=== PATIENT | female | born 1995 | race African-American/Black ===

== ENCOUNTER 2017-03-28 21:03 | Emergency (ER) | payer SELFPAY ==
[2017-03-28 21:10] VITALS: RESP 16
[2017-03-28] MEDS ORDERED: NS 1,000 ML IV ONE (21:53)
[2017-03-28 23:13] LABS: % IMMATURE GRANULYOCYTES 0.4 % (0.0-1.1); ABSOLUTE IMMATURE GRANULOCYTES 0.05 10^3/uL (0.00-0.10); ADD DIFF? NO; ADD MORPH? NO; ADD SCAN? NO; ATYPICAL LYMPHOCYTE FLAG 0 (0-99); FRAGMENT RBC FLAG 0 (0-99); HEMATOCRIT 37.3 % (38.0-47.0); HEMOGLOBIN 13.3 g/dL (12.6-16.3); LEFT SHIFT FLG 0 (0-99); LIPEMIA HEMOLYSIS FLAG 90 (0-99); MEAN CELL HEMOGLOBIN 31.4 pg (27.9-34.1); MEAN CELL HEMOGLOBIN CONCENTR. 35.7 g/dL (32.4-36.7); MEAN CELL VOLUME 88.2 fL (81.5-99.8); MEAN PLATELET VOLUME 9.4 fL (8.7-11.7); PLATELET CLUMPS FLAG 20 (0-99); PLATELET COUNT 277 10^3/uL (150-400); RED BLOOD CELL COUNT 4.23 10^6/uL (4.18-5.33); RED CELL DISTRIBUTION WIDTH 13.2 % (11.5-15.2)
[2017-03-28 23:28] LABS: COLOR PALE YELLOW; LEUKOCYTE ESTERASE,URINE 1+ (NEGATIVE); NITRITE,URINE NEGATIVE (NEGATIVE)
[2017-03-28 23:31] LABS: ANION GAP 12 mEq/L (8-16); CALCIUM 9.4 mg/dL (8.5-10.4); CARBON DIOXIDE 19 mEq/l (22-31); CHLORIDE 106 mEq/L (97-110); CREATININE 0.6 mg/dL (0.6-1.0); GLOMERULAR FILTRATION RATE > 60; GLUCOSE 77 mg/dL (70-100); POTASSIUM 3.7 mEq/L (3.5-5.2); SODIUM 137 mEq/L (134-144)
[2017-03-29 00:03] LABS: BACTERIA 3+ /hpf (NONE SEEN)
--- NOTE | 2017-03-29 00:35 | EDPHY ---
H & P Stated Complaint: vag bleeding/spotting, prenant ? 3 months unk EDC - Personal History LMP (Females 10-55): Over 28 Days Ago Current Tetanus/Diphtheria Vaccine: Unsure - Medical/Surgical History Hx Asthma: No Hx Chronic Respiratory Disease: No Hx Diabetes: No Hx Cardiac Disease: No Hx Renal Disease: No Hx Cirrhosis: No Hx Alcoholism: No Hx HIV/AIDS: No Hx Splenectomy or Spleen Trauma: No Other PMH: PSHx: denies. PMHx: 1, para 0 - Social History Smoking Status: Current every day smoker HPI/ROS: Chief complaint: with pelvic pain and vaginal bleeding History of present illness: This is a 21-year-old female who presents to the emergency department stating that she is and she has developed pelvic pain and vaginal bleeding. She reports the onset of symptoms over the last day. Mild pelvic cramping. Associated bright red blood from the vagina. Occasional clot passage. No more than 1 pad an hour. She denies precipitating factors. She denies alleviating factors. She denies other associated signs or symptoms including no fevers, no abdominal pain, no nausea, vomiting or diarrhea , no urinary symptoms, no other abnormal vaginal discharge. Further no systemic symptoms such as dizziness, lightheadedness, fatigue or weakness. She is not sure how far along she is with her . She has not establish obstetric care as of yet. Review of systems: A 10 point review of systems was obtained and other than described above was negative (Rene Hernandez) - Physical Exam Exam: General Appearance: Alert, nontoxic. Eyes: Pupils equal and round no pallor or injection. ENT, Mouth: Mucous membranes moist. Respiratory: There are no retractions, lungs are clear to auscultation. Cardiovascular: Regular rate and rhythm. Gastrointestinal: Abdomen is soft and non tender, no masses, bowel sounds normal. Neurological: Alert and oriented x4. Strength and sensation intact and symmetrical. Skin: Warm and dry, no rashes. Musculoskeletal: Neck is supple non tender. Extremities are symmetrical, full range of motion. Psychiatric: Patient is oriented X 3, there is no agitation. (Rene Hernandez) Constitutional: Initial Vital Signs Temperature (C) 36.6 C 03/28/17 21:07 Heart Rate 95 03/28/17 21:07 Respiratory Rate 16 03/28/17 21:07 Blood Pressure 110/75 03/28/17 21:07 O2 Sat (%) 98 03/28/17 21:07 O2 Delivery Mode Room Air Allergies/Adverse Reactions: No Known Allergies Allergy (Unverified 03/28/17 21:06) Home Medications: Medication Instructions Recorded Nitrofurantoin Macrobid [Macrobid] 100 mg PO BID 5 Days 03/29/17 Medical Decision Making - Diagnostics Imaging Results: Imaging Impressions Obstetrics Ultrasound 03/28/17 21:53 Impression: 1. Single viable intrauterine gestation with size consistent with LMP dates. 2. FHR = 185 BPM. 3. Recommend followup anatomy scan between 19 and 20 weeks gestation. 4. No subchorionic hemorrhage. Findings and recommendations discussed with Emergency Department physician, EMMA Hammond at 23:14 hour, 03/28/2017. Final report concurs with initial preliminary interpretation. ED Course/Re-evaluation: Patient is discussed with my secondary supervising physician Dr. Keyla Gabriel. Patient presents to the emergency department stating she is and has developed pelvic pain and vaginal bleeding. On presentation she is nontoxic. Afebrile and vital signs are stable. Blood studies are unremarkable. She is O-positive, RhoGAM is not indicated. Pelvic ultrasound is unremarkable. Urinalysis is concerning for infection although she does not have symptoms. At this time I do not appreciate need for further emergency department intervention or inpatient management. She will be discharged. She will be started on Macrobid, urine culture is pending. I have recommended she start vitamins. She has been given referral information to different OBGYN's in [facility]. Home care is discussed. Strict return precautions are given. Patient voiced understanding and agreement with plan. (Rene Hernandez) PHYSICIAN DOCUMENTATION: The patient was evaluated and managed by the Physician Shank Skinner. My co- signature indicates that I have reviewed this chart and I agree with the findings and plan of care as documented. I am the secondary supervising physician. (Keyla Gabriel) Differential Diagnosis: Included but not limited to uneventful , miscarriage, threatened miscarriage, inevitable miscarriage, ectopic , vaginal infections of multiple etiologies, urinary tract infection (Rene Hernandez) - Data Points Laboratory Results: Laboratory Results 03/28/17 23:00 03/28/17 23:00 03/28/17 03/28/17 03/28/17 23:00 23:00 23:00 WBC 11.24 10^3/uL H 10^3/uL (3.80-9.50) RBC 4.23 10^6/uL 10^6/uL (4.18-5.33) Hgb 13.3 g/dL g/dL (12.6-16.3) Hct 37.3 % L % (38.0-47.0) MCV 88.2 fL fL (81.5-99.8) MCH 31.4 pg pg (27.9-34.1) MCHC 35.7 g/dL g/dL (32.4-36.7) RDW 13.2 % % (11.5-15.2) Plt Count 277 10^3/uL 10^3/uL (150-400) MPV 9.4 fL fL (8.7-11.7) Neut % (Auto) 71.5 % % (39.3-74.2) Lymph % (Auto) 19.0 % % (15.0-45.0) [place] % (Auto) 6.3 % % (4.5-13.0) Eos % (Auto) 2.4 % % (0.6-7.6) Baso % (Auto) 0.4 % % (0.3-1.7) Nucleat RBC Rel Count 0.0 % % (0.0-0.2) Absolute Neuts (auto) 8.04 10^3/uL H 10^3/uL (1.70-6.50) Absolute Lymphs (auto) 2.13 10^3/uL 10^3/uL (1.00-3.00) Absolute Monos (auto) 0.71 10^3/uL 10^3/uL (0.30-0.80) Absolute Eos (auto) 0.27 10^3/uL 10^3/uL (0.03-0.40) Absolute Basos (auto) 0.04 10^3/uL 10^3/uL (0.02-0.10) Absolute Nucleated RBC 0.00 10^3/uL 10^3/uL (0-0.01) Immature Gran % 0.4 % % (0.0-1.1) Immature Gran # 0.05 10^3/uL 10^3/uL (0.00-0.10) Sodium 137 mEq/L mEq/L (134-144) Potassium 3.7 mEq/L mEq/L (3.5-5.2) Chloride 106 mEq/L mEq/L (97-110) Carbon Dioxide 19 mEq/l L mEq/l (22-31) Anion Gap 12 mEq/L mEq/L (8-16) BUN 9 mg/dL mg/dL (7-23) Creatinine 0.6 mg/dL mg/dL (0.6-1.0) Estimated GFR > 60 Glucose 77 mg/dL mg/dL (70-100) Calcium 9.4 mg/dL mg/dL (8.5-10.4) Beta HCG, Quant 918336.00 mIU/mL H mIU/mL (0-4.83) Urine Color Urine Appearance Urine pH Ur Specific [place] Urine Protein Urine Ketones Urine Blood Urine Nitrate Urine Bilirubin Urine Urobilinogen Ur Leukocyte Esterase Urine RBC Urine WBC Ur Epithelial Cells Urine Bacteria Urine Glucose Patient ABO/Rh O POSITIVE 03/28/17 21:40 WBC RBC Hgb Hct MCV MCH MCHC RDW Plt Count MPV Neut % (Auto) Lymph % (Auto) [place] % (Auto) Eos % (Auto) Baso % (Auto) Nucleat RBC Rel Count Absolute Neuts (auto) Absolute Lymphs (auto) Absolute Monos (auto) Absolute Eos (auto) Absolute Basos (auto) Absolute Nucleated RBC Immature Gran % Immature Gran # Sodium Potassium Chloride Carbon Dioxide Anion Gap BUN Creatinine Estimated GFR Glucose Calcium Beta HCG, Quant Urine Color PALE YELLOW Urine Appearance CLEAR Urine pH 5.0 (5.0-7.5) Ur Specific [place] 1.003 (1.002-1.030) Urine Protein NEGATIVE (NEGATIVE) Urine Ketones NEGATIVE (NEGATIVE) Urine Blood NEGATIVE (NEGATIVE) Urine Nitrate NEGATIVE (NEGATIVE) Urine Bilirubin NEGATIVE (NEGATIVE) Urine Urobilinogen NEGATIVE EU EU (0.2-1.0) Ur Leukocyte Esterase 1+ H (NEGATIVE) Urine RBC 1-3 /hpf /hpf (0-3) Urine WBC 5-10 /hpf H /hpf (0-3) Ur Epithelial Cells TRACE /lpf /lpf (NONE-1+) Urine Bacteria 3+ /hpf H /hpf (NONE SEEN) Urine Glucose NEGATIVE (NEGATIVE) Patient ABO/Rh Medications Given: Discontinued Medications Sodium Chloride (Ns) 1,000 mls @ 0 mls/hr IV EDNOW ONE; Wide Open PRN Reason: Protocol Stop: 03/28/17 21:54 Last Admin: 03/28/17 23:06 Dose: 1,000 mls Nitrofurantoin Macrocrystals (Macrobid) 100 mg PO EDNOW ONE PRN Reason: Protocol Stop: 03/29/17 00:37 Last Admin: 03/29/17 00:51 Dose: 100 mg Departure - Departure Disposition: Home, Routine, Self-Care Clinical Impression: Spotting affecting Qualifiers: Trimester: first trimester Qualified Code(s): O26.851 - Spotting complicating , first trimester Condition: Good Instructions: Threatened Miscarriage (ED) Additional Instructions: Follow-up with an OBGYN for continued evaluation and care We recommend you start an [id number] vitamin Take all antibiotics as prescribed until finished even feeling better If symptoms worsen or new symptoms develop return to the emergency room for recheck Referrals: NONE *PRIMARY CARE P,. [Primary Care Provider] - As per Instructions [facility],. [Clinic] - As per Instructions Patricia Weeks DO [Doctor of Osteopathy] - As per Instructions Prescriptions: Nitrofurantoin Macrobid [Macrobid] 100 mg PO BID 5 Days
[2017-03-29] MEDS ORDERED: NITROFURANTOIN MACROBID 100 MG CAP PO ONE (00:36)
[2017-03-29 00:56] VITALS: BP 109/67; PULSE 97; TEMP 98.6; O2SAT 99
== END 2017-03-29 01:06 | disposition home or self-care (01) ==
DX: O26.851 Spotting complicating pregnancy, first trimester (principal); F17.200 Nicotine dependence, unspecified, uncomplicated; E86.9 Volume depletion, unspecified; O26.891 Other specified pregnancy related conditions, first trimester; R10.2 Pelvic and perineal pain; Z3A.12 12 weeks gestation of pregnancy